=== PATIENT | female | born 1980 | race Two or more races ===

== ENCOUNTER 2024-04-03 03:45 | Emergency (ER) | payer MEDICAID, OTHER ==
[~2024-04-03] VITALS: Ht 165.1 cm; Wt 70.0 kg
[2024-04-03] MEDS: KETOROLAC TROMETH 60MG/2ML VIAL IM ONE (05:01)
[2024-04-03] MEDS: DexAMETHasone SOD PHOS 10MG/1ML VIAL INJ IM ONE (05:04)
[2024-04-03] MEDS ORDERED: PRED20TA2 PO (05:20)
[2024-04-03] MEDS ORDERED: IBUP-1456 PO (05:20)
[2024-04-03 06:01] VITALS: BP 142/84; PULSE 79; RESP 19; TEMP 98.3; O2SAT 100
== END 2024-04-03 06:07 | disposition home or self-care (01) ==
LOC: ER 03:53
DX: S63.8X1A Sprain of other part of right wrist and hand, initial encounter (principal); M79.642 Pain in left hand; Z98.890 Other specified postprocedural states; X58.XXXA Exposure to other specified factors, initial encounter; Y93.89 Activity, other specified; Y92.89 Other specified places as the place of occurrence of the external cause; Y99.8 Other external cause status
CPT/HCPCS: 73130; 96372; 99284; J1100; J1885